=== PATIENT | female | born 1955 | race Caucasian/White ===

== ENCOUNTER 2023-01-18 13:53 | Outpatient (CLI) | payer MEDICARE, MEDICAID, SELFPAY | END 2023-01-18 13:54 | disposition home or self-care (01) | PROVIDERS: PCP Family Medicine; Visit Provider Family Medicine | DX: H91.92 Unspecified hearing loss, left ear (principal) | CPT/HCPCS: 99199 ==

== ENCOUNTER 2023-03-15 09:54 | Outpatient (CLI) | payer MEDICARE, MEDICAID, SELFPAY | END 2023-03-15 09:55 | disposition home or self-care (01) | LOC: ANHBWCAUD 09:55 | PROVIDERS: PCP Family Medicine; Visit Provider Family Medicine | DX: H90.42 Sensorineural hearing loss, unilateral, left ear, with unrestricted hearing on the contralateral side (principal); H90.71 Mixed conductive and sensorineural hearing loss, unilateral, right ear, with unrestricted hearing on the contralateral side | CPT/HCPCS: 92557; 92567 ==